=== PATIENT | male | born 1995 | race Caucasian/White ===

== ENCOUNTER 2017-03-17 13:08 | Emergency (ER) | payer BC ==
[2017-03-17] MEDS ORDERED: Ondansetron 4 MG Tab.DIS PO ONE (13:59)
--- NOTE | 2017-03-17 14:11 | EDM.PDOC ---
ED HPI GENERAL MEDICAL PROBLEM - General Chief Complaint: Gastrointestinal Problem Stated Complaint: THOWING UP/FLU-? Time Seen by Provider: 03/17/17 13:35 Source of Information: Reports: Patient History Limitations: Reports: No Limitations - History of Present Illness INITIAL COMMENTS - FREE TEXT/NARRATIVE: 22-year-old male usually healthy started developing nausea and vomiting around 1 AM, and since that time has had persistent emesis with occasional diarrhea and abdominal cramps. He is also running a low-grade fever. No shortness of breath or cough, no blood in the emesis or diarrhea. His girlfriend started developing symptoms about 2 hours later. He has not had any emesis for the last hour. Onset: Gradual (Symptoms started around midnight last night) Duration: Hour(s): (12 hours) Severity: Mild Associated Symptoms: Reports: Fever/Chills, Loss of Appetite, Malaise, Nausea/ Vomiting. Denies: Headaches, Shortness of Breath Middle Abdominal Pain Score (Numeric/FACES): 4 - Related Data Allergies Allergy/AdvReac Type Severity Reaction Status Date / Time No Known Allergies Allergy Verified 03/17/17 13:52 Home Meds: Home Meds NK [No Known Home Meds] 03/17/17 [History] Past Medical History - Past Surgical History Other HEENT Surgeries/Procedures: ORAL SURGERY Social & Family History - Tobacco Use Smoking Status *Q: Unknown Ever Smoked ED ROS GENERAL - Review of Systems Review Of Systems: See Below Constitutional: Reports: Fever, Chills, Malaise, Weakness HEENT: Reports: No Symptoms Respiratory: Denies: Shortness of Breath Cardiovascular: Denies: Chest Pain GI/Abdominal: Reports: Abdominal Pain (Intermittent cramping), Diarrhea, Nausea , Vomiting : Reports: No Symptoms Musculoskeletal: Denies: Muscle Pain Neurological: Denies: Dizziness, Headache ED EXAM, GI/ABD - Physical Exam Exam: See Below Exam Limited By: No Limitations General Appearance: Alert, No Apparent Distress (Looks uncomfortable but not distressed) Eyes: Bilateral: Normal Appearance (No jaundice, normal hydration) Throat/Mouth: Normal Inspection (Normal hydration) Respiratory/Chest: No Respiratory Distress, Lungs Clear Cardiovascular: Regular Rate, Rhythm GI/Abdominal Exam: Abnormal Bowel Sounds (Hypoactive bowel sounds, no significant tenderness to palpation) Course - Vital Signs Last Recorded V/S: Last Vital Signs Temp 100.0 F 03/17/17 14:54 Pulse 95 03/17/17 14:54 Resp 14 03/17/17 14:54 BP 124/84 03/17/17 14:54 Pulse Ox 98 03/17/17 14:54 - Orders/Labs/Meds Meds: Medications Discontinued Medications Generic Name Dose Route Start Last Admin Trade Name Femi PRN Reason Stop Dose Admin Ondansetron HCl 4 mg 03/17/17 13:59 03/17/17 14:20 Zofran Odt PO 03/17/17 14:00 4 mg ONETIME ONE Administration - Re-Assessments/Exams Free Text/Narrative Re-Assessment/Exam: 03/17/17 14:10 Give the patient a sublingual Zofran, and allowed to sip on water for the next half hour. Reassured him that this is likely viral and will run its course within 12-24 hours. 03/17/17 14:57 Patient continued to sip water without any additional emesis. He was discharged with 5 additional doses of Zofran to use over the next 24 hours up to 3 times a day and can return if worsening. Departure - Departure Time of Disposition: 15:10 Disposition: Home, Self-Care 01 Condition: Good Clinical Impression: Gastroenteritis - Discharge Information Instructions: Viral Gastroenteritis, Adult, [id number] Referrals: PCP,None [Primary Care Provider] - Forms: ED Department Discharge Care Plan Goals: Advance diet as tolerated starting with fluids. Increase activity as tolerated and return if worsening despite nausea treatment.
== END 2017-03-17 15:11 | disposition home or self-care (01) ==
LOC: JP.ED 13:08
DX: K52.9 Noninfective gastroenteritis and colitis, unspecified (principal)
CPT/HCPCS: 99284; A9270